=== PATIENT | male | born 1975 | race Caucasian/White ===

== ENCOUNTER 2018-02-23 15:38 | Emergency (ER) | payer OTHER ==
[~2018-02-23] VITALS: Ht 162.6 cm; Wt 68.2 kg
[2018-02-23 15:57] VITALS: BP 124/81
== END 2018-02-23 17:34 | disposition home or self-care (01) ==
LOC: EMS 15:40
DX: M79.601 Pain in right arm (principal); F17.210 Nicotine dependence, cigarettes, uncomplicated; F11.10 Opioid abuse, uncomplicated
CPT/HCPCS: 99283; 99406